=== PATIENT | male | born 1970 | race Caucasian/White ===

== ENCOUNTER → 2020-07-30 | Outpatient (CLI) | payer OTHER | LOC: CAT 13:18 | PROVIDERS: ATTEND Internal Medicine Cardiovascular Disease | DX: Z13.6 Encounter for screening for cardiovascular disorders (principal); I25.10 Atherosclerotic heart disease of native coronary artery without angina pectoris; E78.00 Pure hypercholesterolemia, unspecified ==

== ENCOUNTER → 2020-07-31 | Outpatient (CLI) | payer BC, OTHER ==
[~2020-07-31] MED LIST: ASA81BEC PO; BYSTOLIC10 MG PO; EDARBI40 MG PO; LIPITOR20 MG PO; NEXIUM 40 MG CA40 M1 PO
== END ==
LOC: SJCVCIMAG 12:55
PROVIDERS: ATTEND Internal Medicine Cardiovascular Disease
DX: Z01.818 Encounter for other preprocedural examination (principal); I07.1 Rheumatic tricuspid insufficiency; R00.0 Tachycardia, unspecified; Z87.891 Personal history of nicotine dependence; Z82.49 Family history of ischemic heart disease and other diseases of the circulatory system

== ENCOUNTER → 2020-08-07 | Outpatient (CLI) | payer BC, OTHER ==
[~2020-08-07] VITALS: Ht 180.3 cm; Wt 104.3 kg
[2020-08-07 08:53] VITALS: BP 123/91
[2020-08-07 09:00] LABS: HEMATOCRIT 51.7 % (42.0-52.0); MCH 33.2 pg (26.0-34.0); MCHC 34.9 g/dL (28.0-37.0); MCV 95.1 fL (80.0-100.0); RBC 5.44 mil/uL (4.50-6.00); RDW 12.8 % (10.5-14.5); WBC 8.9 thou/uL (4.0-11.0)
[2020-08-07 09:06] LABS: CALCIUM 9.1 mg/dL (8.5-10.1); POTASSIUM 4.4 mmol/L (3.5-5.1)
--- NOTE | 2020-08-07 12:45 | CATHLAB ---
[facility] [place] [address] INVASIVE PROCEDURE REPORT Name: CARA JACINTO Room #: REG APRIL Isabel#: [id number] Admission: 08/07/20 Attend Phys: Jacob Salvador MD, Discharge: Date of : 72 Report #: [id number] THIS REPORT FOR: cc: Carmine Dooley MD, Alexander MD Mancuso, Gerald M. MD [facility] ~ APPROVED REPORT Study performed: 08/07/2020 10:15:31 Patient Details Patient Status: Out-Patient Room #: The patient is a 49 year-old male Event Personnel Jacob Salvador Labor Relations Teacher, Du Carpenter RN RN, Ewa Juarez RTR, [employer] Monitor, Anjelica Perry RTR Scrub Procedures Performed Art Access - R femoral artery* Thomas Access - R femoral vein Right and Left Heart Cath w/or w/o Coronarie [id number] [facility] Aortogram Abdominal Peripheral Angio [id number] Initial Mod Sed Same Phys/QHP Gr5y 243977 45029 Mod Sed Same Phys/QHP Ea 286901 Hemostasis w/ Mynx Indication Dyspnea, Positive stress test Procedure Narrative The Right Groin^ was infiltrated with 1% Lidocaine subcutaneous anesthesia. A PINNACLE 6FR Sheath #[id number] sheath was inserted into the RFA. Coronary angiography was performed using coronary diagnostic catheters. The right coronary system was accessed and visualized with a JR4 catheter. The left coronary system was accessed and visualized with a JL4 catheter. The left ventricle was accessed and visualized with a pigtail catheter. Left ventriculogram was performed in 30 degree projection. An aortogram of the abdominal aorta was performed. Pre-demployment femoral angiogram was performed . Closure device was deployed with a 6 Fr MYNXGRIP 6/7F #[id number]. Hemostasis was obtained with manual pressure following sheath removal without any complications. The patient tolerated the procedure well and there were no complications associated with the procedure. There was no hematoma. [facility] [address] [place] [address] INVASIVE PROCEDURE REPORT Name: CARA JACINTO Room #: [facility]#: [id number] Admission: 08/07/20 Attend Phys: Jacob Salvador, Discharge: Date of : 72 Report #: [id number] Intraoperative Conscious Sedation Sedation start time: 10:46 Case end Time: 11:29 Fentanyl 200 mcg Versed 4 mg Fluoro Time: 3.58 minutes Dose: DAP 4544.00 cGycm2 415 mGy Contrast Type and Amount: Omnipaque 110 ml Hemodynamics The right atrial mean pressure is 11 mmHg. The right ventricular pressure is 34/10 mmHg. The pulmonary artery pressure is 36/11 mmHg with a mean of 24 mmHg. The mean pulmonary capillary wedge pressure is 12 mmHg. The aortic pressure is 104/71 mmHg with a mean of 83 mmHg. The left ventricular pressure is 104/6 mmHg with a mean of mmHg. The left ventricular end diastolic pressure is 21 mmHg. The cardiac output using thermo method is 6.10 L/min. The cardiac index using thermo method is 2.75 L/min/m2. Conclusion #1. Successful right heart catheterization with cardiac output by thermodilution. See above hemodynamics. #2 borderline left ventricular dilatation with moderate global hypokinesis EF 30% rang #3 essentially normal coronary anatomy without significant occlusive disease anatomically dominant right coronary artery PDA but an extensive circumflex OM system also LAD to the apex all widely patent. #4 abdominal aortogram revealing mild aortic ectasia but no aneurysm and brisk flow. Recommendations and plan: Continue aggressive risk factor modification. Relative salt and fluid restriction will be further discussed. Complete alcohol cessation. We will continue beta-bela afterload reducers. Close follow-up is recommended. <ELECTRONICALLY SIGNED> By: Jacob Salvador MD, FACC 08/07/20 1244 1244 1244 Jacob Salvador MD, FACC /INF
== END | disposition home or self-care (01) ==
LOC: CATH 08:18
PROVIDERS: ATTEND Internal Medicine Cardiovascular Disease
DX: R94.39 Abnormal result of other cardiovascular function study (principal); R06.00 Dyspnea, unspecified; I25.10 Atherosclerotic heart disease of native coronary artery without angina pectoris; I77.811 Abdominal aortic ectasia; I10 Essential (primary) hypertension; E78.5 Hyperlipidemia, unspecified; G47.33 Obstructive sleep apnea (adult) (pediatric); K21.9 Gastro-esophageal reflux disease without esophagitis; E66.09 Other obesity due to excess calories; Z98.890 Other specified postprocedural states; Z79.899 Other long term (current) drug therapy; Z82.49 Family history of ischemic heart disease and other diseases of the circulatory system; Z87.891 Personal history of nicotine dependence; Z79.82 Long term (current) use of aspirin

== ENCOUNTER → 2021-04-10 | Outpatient (CLI) | payer BC, OTHER | LOC: SJCVCIMAG 10:42 | PROVIDERS: ATTEND Internal Medicine Cardiovascular Disease | DX: I42.8 Other cardiomyopathies (principal); R42 Dizziness and giddiness; R55 Syncope and collapse ==

== ENCOUNTER → 2021-09-30 | Outpatient (CLI) | payer BC, OTHER | LOC: SJCVCIMAG 09:13 | PROVIDERS: ATTEND Internal Medicine Cardiovascular Disease | DX: I65.23 Occlusion and stenosis of bilateral carotid arteries (principal); I42.8 Other cardiomyopathies; I10 Essential (primary) hypertension; E78.00 Pure hypercholesterolemia, unspecified; E78.5 Hyperlipidemia, unspecified; R93.1 Abnormal findings on diagnostic imaging of heart and coronary circulation; I25.10 Atherosclerotic heart disease of native coronary artery without angina pectoris; J45.909 Unspecified asthma, uncomplicated; G47.33 Obstructive sleep apnea (adult) (pediatric); Z87.891 Personal history of nicotine dependence; Z88.8 Allergy status to other drugs, medicaments and biological substances; Z79.82 Long term (current) use of aspirin; Z79.899 Other long term (current) drug therapy ==

== ENCOUNTER → 2021-10-22 | Outpatient (CLI) | payer BC, OTHER | LOC: SJCVCIMAG 10:59 | PROVIDERS: ATTEND Internal Medicine Cardiovascular Disease | DX: R93.1 Abnormal findings on diagnostic imaging of heart and coronary circulation (principal); I42.9 Cardiomyopathy, unspecified ==